=== PATIENT | female | born 1950 | race Caucasian/White ===

== ENCOUNTER 2020-04-16 14:02 | Outpatient (REF) | payer MEDICARE, SELFPAY ==
[2020-04-16 17:45] LABS: MANUAL DIFF FLAG NO
[2020-04-16 18:11] LABS: Basophils Absolute Auto 0.1 X10*3/uL (0.0-0.2); Basophils Percent Auto 1.4 % (0-2); Eosinophils Absolute Auto 0.3 X10*3/uL (0.0-0.4); Eosinophils Percent Auto 6.4 % (0-4); Hematocrit 40.9 % (37-47); Hemoglobin 13.4 g/dl (12.0-16.0); Imm Gran Abs Auto 0.03 X10*3/uL (0.00-0.03); Imm Gran Pct Auto 0.6 % (0.0-0.4); Lymphocytes Absolute Auto 1.3 X10*3/uL (1.2-4.9); Lymphocytes Percent Auto 24.6 % (20-40); Mean Corpuscular HGB Conc 32.8 g/dl (31.0-35.0); Mean Corpuscular Hemoglobin 30.2 pg (27.0-33.0); Mean Corpuscular Volume 92.3 fL (80-98); Mean Platelet Volume 9.6 fL (9.4-12.3); Monocytes Absolute Auto 0.4 X10*3/uL (0.1-1.2); Monocytes Percent Auto 8.4 % (2-11); Neutrophils Percent Auto 58.6 % (45-73); Platelet Count 252 X10*3/uL (160-400); Red Blood Count 4.43 X10*6/uL (4.20-5.50); Red Cell Distribution Width 14.8 % (11.0-16.0); White Blood Count 5.1 X10*3/uL (4.8-10.8)
[2020-04-16 18:24] LABS: Alanine Aminotransferase 7 U/L (0-31); Albumin Level 3.9 g/dL (3.5-5.0); Alkaline Phosphatase 73 U/L (39-117); Anion Gap 10 (12-20); Aspartate Amino Transferase 13 U/L (5-31); Bilirubin Total 0.3 mg/dL (0.0-1.0); Blood Urea Nitrogen 17 mg/dL (9-16); Calcium 8.6 mg/dL (8.4-10.2); Carbon Dioxide 30 mmol/L (22-29); Chloride 103 mmol/L (96-108); Cholesterol 167 mg/dL; Estimated Glomerular Filt Rate 58; Glucose Fasting 79 mg/dL (60-99); HDL Cholesterol 46 mg/dL; LDL Cholesterol Calculated 106 mg/dl; Sodium 139 mmol/L (135-145); Total Protein 6.9 g/dL (6.5-8.0); Triglycerides 75 mg/dL
== END 2020-04-16 14:03 | disposition home or self-care (01) ==
LOC: HO.MANLDS 14:02
PROVIDERS: PCP Physician Assistant; Visit Provider Physician Assistant
DX: Z00.00 Encounter for general adult medical examination without abnormal findings (principal); Z13.6 Encounter for screening for cardiovascular disorders
CPT/HCPCS: 36415; 80053; 80061; 85025

== ENCOUNTER → 2020-05-05 13:31 | Outpatient (BNVA) | payer MEDICARE, SELFPAY | PROVIDERS: PCP Internal Medicine; Referring Provider Physician Assistant; Visit Provider Internal Medicine Gastroenterology | DX: K58.0 Irritable bowel syndrome with diarrhea (principal); Z86.010 Personal history of colon polyps | CPT/HCPCS: 99212 ==

== ENCOUNTER 2020-07-10 12:00 | Day surgery (SDC) | payer MEDICARE, SELFPAY ==
[2020-07-03 10:55] VITALS: BMI 25.7
--- NOTE | 2020-07-08 14:20 | HO.ANESPROP2 ---
Documented by User: Tanja Lora 07/08/20 14:21 HPI - Anesthesia Eval Consult details Narrative: 70yo F for Colonoscopy [facility] Past Medical History Medical History Cancer of vulva IBS (irritable colon syndrome) Psoriasis Tubular adenoma of colon Family History Family History Mother Bladder cancer Heart disease Sister Breast cancer Hypothyroidism Father COPD (chronic obstructive pulmonary disease) HTN (hypertension) Paternal Grandfather Cancer Maternal Grandmother Diabetes mellitus Maternal Grandfather Heart attack Surgical History Surgical History Hx of colonoscopy Social History Social History Household Members: Spouse Are you a primary director critical care to a significant other at home: No Do you presently have visiting nurse or other home services: No Alcohol intake: current Alcohol intake frequency: does not drink Smoking Status: Current every day smoker Packs Per Day: 0.5 Cigarettes Per Day: 10.0 Years Smoked: 48 Smoked in Last 30 Days: Yes Patient Interested in Nicotine Replacement: No Patient Given Instructions on How to Stop Smoking: Yes Date Education Initiated: 07/03/20 Use of substances other than those prescribed or required for medical reasons: No Have you been hit, kicked, punched, or otherwise hurt by someone within the past year? If so, by whom?: No Advance Directives: No Advance Directives Information Provided: No Advance Directives on File: No Recently lost weight without trying: No Meds Allergies Allergy/AdvReac Type Severity Reaction Status Date / Time aspirin [Percodan] Allergy Unknown Headache Verified 07/10/20 12:24 oxycodone [Percodan] Allergy Unknown Headache Verified 05/05/20 13:32 Home Medications Medication Instructions Recorded Confirmed Type adalimumab 40 mg/0.4 mL 40 mg SUBCUT QWEEK ea 05/05/20 07/02/20 History subcutaneous syringe kit amlodipine 5 mg tablet 5 mg PO DAILY 05/05/20 07/02/20 History citalopram 20 mg tablet 20 mg PO DAILY 05/05/20 07/02/20 History ASA,buffd(mag,aluminum hydrox) ONCE 07/10/20 History Exam Exam Date and Time: July 08, 2020 1420 Height,Weight and Vital Signs: Height 5 ft 3 in Weight 65.771 kg Assessment and Plan Assessment Anesthesia Assessment: Chart Reviewed Documented by User: Racquel Guo 07/10/20 12:39 [facility] Past Medical History Medical History Cancer of vulva IBS (irritable colon syndrome) Psoriasis Tubular adenoma of colon Family History Family History Mother Bladder cancer Heart disease Sister Breast cancer Hypothyroidism Father COPD (chronic obstructive pulmonary disease) HTN (hypertension) Paternal Grandfather Cancer Maternal Grandmother Diabetes mellitus Maternal Grandfather Heart attack Surgical History Surgical History Hx of colonoscopy Social History Social History Household Members: Spouse Are you a primary director critical care to a significant other at home: No Do you presently have visiting nurse or other home services: No Alcohol intake: current Alcohol intake frequency: does not drink Smoking Status: Current every day smoker Packs Per Day: 0.5 Cigarettes Per Day: 10.0 Years Smoked: 48 Smoked in Last 30 Days: Yes Patient Interested in Nicotine Replacement: No Patient Given Instructions on How to Stop Smoking: Yes Date Education Initiated: 07/03/20 Use of substances other than those prescribed or required for medical reasons: No Have you been hit, kicked, punched, or otherwise hurt by someone within the past year? If so, by whom?: No Advance Directives: No Advance Directives Information Provided: No Advance Directives on File: No Recently lost weight without trying: No Meds Allergies Allergy/AdvReac Type Severity Reaction Status Date / Time aspirin [Percodan] Allergy Unknown Headache Verified 07/10/20 12:24 oxycodone [Percodan] Allergy Unknown Headache Verified 05/05/20 13:32 Home Medications Medication Instructions Recorded Confirmed Type adalimumab 40 mg/0.4 mL 40 mg SUBCUT QWEEK ea 05/05/20 07/02/20 History subcutaneous syringe kit amlodipine 5 mg tablet 5 mg PO DAILY 05/05/20 07/02/20 History citalopram 20 mg tablet 20 mg PO DAILY 05/05/20 07/02/20 History ASA,buffd(mag,aluminum hydrox) ONCE 07/10/20 History Exam Airway Mallampati Class: II TM Dist: >3cm Neck ROM: Full Assessment and Plan Assessment Anesthesia Assessment: Anesthesia Plan Discussed and Chart Reviewed Final Anesthetic Review NPO: Yes ASA Class: II Final Preanesthetic Review: No Changes in Pt Med Stat, Meds/Allgs Chart Reviewed, Consent Obtained/Reviewed and Anes Risks/Benef Reviewed Patient Risk: Low Procedure Risk: Low Assessment/Block/Sedation in SS: Assess/Block/Sedation-SS Anesthetic Plan Anesthetic Plan: MAC: Disposition: Standard PACU
[2020-07-10 12:29] VITALS: BP 161/71; PULSE 82; RESP 16; TEMP 35.7; O2SAT 98
--- NOTE | 2020-07-10 12:49 | MHC.SHP ---
Pre-Procedural Eval Section B Chief Complaint: Benign Neoplasm of Colon Details of Present Illness: COLON CANCER SCREENING; HX OF TUBULAR ADENOMAS nO CHANGES FROM pRE PROC VISIT Relevant Family History (Specify if Yes): No Relevant Social History: Tobacco Use (STILL A SMOKER) Present Medications: see Short Stay Collaborative assessment Medical History: Significant History History of Previous Operations: No relevant previous surgery (COLO-2015--NEG, PREVIOUS LARGE TA WITH HIGH GRADE DYSPLASIA.) Allergies: Allergies Allergy/AdvReac Type Severity Reaction Status Date / Time aspirin [Percodan] Allergy Unknown Headache Verified 07/10/20 12:24 oxycodone [Percodan] Allergy Unknown Headache Verified 05/05/20 13:32 Review of Systems Sugical H&P ROS: Negative: Constitution, Cardiovascular, Respiratory, Neurological, Psychiatric and Gastrointestinal Review of Systems Comment: hX OF COLO IN PAST WITH HIGH GRADE DYSPLASIA. Exam Surgical H&P Exam: Normal: HEENT, Normal: Heart, Normal: Lungs, Normal: Extremities and Normal: Abdomen Plan Diagnosis/Plan: Unchanged I have reviewed the history and physical and performed a pertinent physical examination on my patient. No changes have occurred unless specified.YES
[2020-07-10] MEDS: Lactated Ringers 1,000 ML 100 ML IVCONT (12:50)
[2020-07-10 13:34] VITALS: BP 87/48; PULSE 68; RESP 16; TEMP 36.1; O2SAT 97
--- NOTE | 2020-07-10 13:36 | PM.PROC ---
Brief Operative Note Date of procedure: 07/10/20 Pre-op diagnosis: HX OF TUBULAR ADENOMA Post-op diagnosis: other (COLON POLYPS, MELANOSIS COLI) Procedure: COLONOSCOPY EXCISIONAL POLYPECTOMY X2, CSP X1--RESOLUTION CLIPPING X1 Anesthesia: MAC (TRENA SOLANO) Surgeon: Fariba Ponce Estimated blood loss (mL): 10 Pathology: other (60 CM (2 POLYPS); RECTAL) Condition: stable Disposition: PACU
[2020-07-10 13:38] VITALS: BP 91/48; PULSE 60; RESP 16; O2SAT 97
[2020-07-10 13:44] VITALS: BP 90/43; PULSE 50; RESP 16; O2SAT 99
[2020-07-10 13:50] VITALS: BP 92/42; PULSE 53; RESP 16; TEMP 36.1; O2SAT 99
[2020-07-10 14:05] VITALS: BP 120/54; PULSE 57; RESP 16; TEMP 36.1; O2SAT 99
--- NOTE | 2020-07-10 14:46 | HO.POSTANES ---
Post Anesthesia Evaluation Post Anesthesia Evaluation Vital Signs: Vital Signs Temp Pulse Resp BP Pulse Ox 07/10/20 14:05 97 F 57 16 120/54 L 99 07/10/20 13:50 97 F 53 16 92/42 L 99 07/10/20 13:44 50 16 90/43 L 99 07/10/20 13:38 60 16 91/48 L 97 07/10/20 13:34 97 F 68 16 87/48 L 97 07/10/20 12:29 96.2 F L 82 16 161/71 H 98 Anesthesia: General (tiva) Mental Status: Awake Pain Control: Satisfactory Nausea/Vomiting: None Hydration: Adequate Anesthesia-Related Issues: No Anes. Related Issues
--- NOTE | 2020-07-12 12:06 | OP_ITS ---
SURGEON: Fariba Ponce MD INDICATIONS: The patient has history of tubular adenoma. PREOPERATIVE DIAGNOSIS: Colon cancer screening, Hx Tubular adenoma with high grade dysplasia ESTIMATED BLOOD LOSS: Less than 10 mL. COMPLICATIONS: No complications. ANESTHESIA: Monitored. ANESTHESIOLOGIST: Darío Martino CRNA. ASSISTANTS: No business banking sales assistant. SPECIMENS: Removed, 60 cm 2 polyps, 1 larger than the other. Rectal polyp. POSTOPERATIVE DIAGNOSES: Colonic polyps, melanosis coli. CAFETERIA OR LUNCHROOM CHECKER: Dr. Ponce. PROCEDURES PERFORMED: Colonoscopy with excisional polypectomy x2, cold snare polypectomy x1, resolution clipping x1. CONDITION: Postprocedure, stable. FINDINGS: Digital rectal exam revealed no specific findings. Video colonoscope was introduced without difficulty. It was navigated into the rectosigmoid sigmoid and up through descending, transverse, ascending colon down into the cecum. Appendiceal orifice was seen. Ileocecal valve was well seen. No mucosal lesions were seen in this area. Prep was good to excellent. Slow rotational views on withdrawing the scope at 60 cm, a 2-3 mm polyp was identified and removed with the use of 2-3 mm polyp was identified, removed with cold snare polypectomy technique. Excisional polypectomy was used and a diminutive polyp on the fold within the same 5 cm range. There was mild oozing from the larger polyp area, this was controlled with resolution clip placement. On withdrawing, no additional findings were noted until the rectum and then there was a somewhat sessile polyp that had varying cryptic pattern that was within 6 cm and anorectal verge was removed excisionally with the cold biopsy forceps. PLAN: This patient should remain in 5-year followup screening. She tolerated the procedure well. GRAFT OR IMPLANTS: No grafts or implants. Resolution clip was placed at base of polyp at 60 cm. Fariba Ponce MD [facility] / [id number] [facility]
== END 2020-07-10 14:58 | disposition home or self-care (01) ==
PROVIDERS: PCP Internal Medicine; Visit Provider Internal Medicine Gastroenterology
PROC: 0DJD8ZZ Inspection of Lower Intestinal Tract, Via Natural or Artificial Opening Endoscopic (ICD-10-PCS; CPT 45378; principal; 2020-07-10 13:10)
DX: Z12.11 Encounter for screening for malignant neoplasm of colon (principal); Z86.010 Personal history of colon polyps; D12.6 Benign neoplasm of colon, unspecified; K62.1 Rectal polyp; K63.89 Other specified diseases of intestine; K58.0 Irritable bowel syndrome with diarrhea; Z85.44 Personal history of malignant neoplasm of other female genital organs; Z79.899 Other long term (current) drug therapy; Z88.8 Allergy status to other drugs, medicaments and biological substances; F17.210 Nicotine dependence, cigarettes, uncomplicated
CPT/HCPCS: 45385; 45380; 88305

== ENCOUNTER → 2020-07-23 11:31 | Outpatient (BNVA) | payer MEDICARE, SELFPAY | PROVIDERS: PCP Internal Medicine; Visit Provider Internal Medicine Gastroenterology | DX: Z13.89 Encounter for screening for other disorder (principal) | CPT/HCPCS: Q3014 ==

== ENCOUNTER 2020-08-26 14:40 | Outpatient (REF) | payer MEDICARE, SELFPAY ==
[2020-08-26 15:08] LABS: MANUAL DIFF FLAG NO
[2020-08-26 15:12] LABS: Basophils Absolute Auto 0.1 X10*3/uL (0.0-0.2); Basophils Percent Auto 1.2 % (0-2); Eosinophils Absolute Auto 0.3 X10*3/uL (0.0-0.4); Eosinophils Percent Auto 5.1 % (0-4); Hematocrit 41.9 % (37-47); Hemoglobin 13.8 g/dl (12.0-16.0); Imm Gran Abs Auto 0.05 X10*3/uL (0.00-0.03); Imm Gran Pct Auto 0.9 % (0.0-0.4); Lymphocytes Absolute Auto 1.3 X10*3/uL (1.2-4.9); Lymphocytes Percent Auto 22.3 % (20-40); Mean Corpuscular HGB Conc 32.9 g/dl (31.0-35.0); Mean Corpuscular Hemoglobin 29.7 pg (27.0-33.0); Mean Corpuscular Volume 90.3 fL (80-98); Mean Platelet Volume 8.5 fL (9.4-12.3); Monocytes Absolute Auto 0.5 X10*3/uL (0.1-1.2); Monocytes Percent Auto 7.9 % (2-11); Neutrophils Absolute Auto 3.6 X10*3/uL (2.0-8.3); Neutrophils Percent Auto 62.6 % (45-73); Platelet Count 302 X10*3/uL (160-400); Red Blood Count 4.64 X10*6/uL (4.20-5.50); Red Cell Distribution Width 13.9 % (11.0-16.0); White Blood Count 5.7 X10*3/uL (4.8-10.8)
[2020-08-26 15:45] LABS: Alanine Aminotransferase 8 U/L (0-31); Alkaline Phosphatase 84 U/L (39-117); Anion Gap 12 (12-20); Aspartate Amino Transferase 14 U/L (5-31); Bilirubin Total 0.4 mg/dL (0.0-1.0); Blood Urea Nitrogen 18 mg/dL (9-16); Carbon Dioxide 30 mmol/L (22-29); Chloride 101 mmol/L (96-108); Estimated Glomerular Filt Rate 56; Glucose Random 72 mg/dL (60-115); Potassium 4.5 mmol/L (3.3-5.1); Sodium 138 mmol/L (135-145)
[2020-08-28 23:46] LABS: TS Negative Control Passed; TS Panel A 0; TS Panel B 0; TS Positive Control Passed; TSpotTB Negative (SeeBelow)
== END 2020-08-26 14:41 | disposition home or self-care (01) ==
LOC: HO.LAB 14:40
PROVIDERS: PCP Internal Medicine; Visit Provider Dermatology
DX: L40.0 Psoriasis vulgaris (principal); Z79.899 Other long term (current) drug therapy
CPT/HCPCS: 36415; 80053; 85025; 86481

== ENCOUNTER → 2021-02-13 15:03 | Outpatient (BNVA) | payer MEDICARE, SELFPAY | PROVIDERS: PCP Internal Medicine; Visit Provider Nurse Practitioner | DX: K58.9 Irritable bowel syndrome, unspecified (principal); D12.6 Benign neoplasm of colon, unspecified; F17.210 Nicotine dependence, cigarettes, uncomplicated | CPT/HCPCS: Q3014 ==

== ENCOUNTER → 2021-05-18 16:23 | Outpatient (BNVA) | payer MEDICARE, SELFPAY | PROVIDERS: Visit Provider Nurse Practitioner | DX: Z13.89 Encounter for screening for other disorder (principal) | CPT/HCPCS: Q3014 ==

== ENCOUNTER 2021-09-04 12:40 | Outpatient (REF) | payer MEDICARE, SELFPAY ==
[2021-09-04 14:12] LABS: MANUAL DIFF FLAG NO
[2021-09-04 14:28] LABS: Basophils Absolute Auto 0.1 X10*3/uL (0.0-0.2); Basophils Percent Auto 0.9 % (0-2); Eosinophils Absolute Auto 0.1 X10*3/uL (0.0-0.4); Eosinophils Percent Auto 2.5 % (0-4); Hematocrit 43.9 % (37.0-47.0); Hemoglobin 14.3 g/dl (12.0-16.0); Imm Gran Abs Auto 0.02 X10*3/uL (0.00-0.03); Imm Gran Pct Auto 0.4 % (0.0-0.4); Lymphocytes Absolute Auto 1.4 X10*3/uL (1.2-4.9); Lymphocytes Percent Auto 24.7 % (20-40); Mean Corpuscular HGB Conc 32.6 g/dl (31.0-35.0); Mean Corpuscular Hemoglobin 29.4 pg (27.0-33.0); Mean Corpuscular Volume 90.3 fL (80.0-98.0); Mean Platelet Volume 9.1 fL (9.4-12.3); Monocytes Absolute Auto 0.4 X10*3/uL (0.1-1.2); Monocytes Percent Auto 7.9 % (2-11); Neutrophils Absolute Auto 3.6 x10*3/uL (2.0-8.3); Neutrophils Percent Auto 63.6 % (45-73); Platelet Count 254 X10*3/uL (160-400); Red Blood Count 4.86 X10*6/uL (4.20-5.50); Red Cell Distribution Width 14.8 % (11.0-16.0); White Blood Count 5.6 X10*3/uL (4.8-10.8)
[2021-09-04 14:53] LABS: Alanine Aminotransferase < 6 U/L (0-31); Alkaline Phosphatase 77 U/L (39-117); Anion Gap 11 (12-20); Aspartate Amino Transferase 14 U/L (5-31); Bilirubin Total 0.4 mg/dL (0.0-1.0); Blood Urea Nitrogen 12 mg/dL (9-16); Calcium 9.5 mg/dL (8.4-10.2); Carbon Dioxide 30 mmol/L (22-29); Chloride 101 mmol/L (96-108); Estimated Glomerular Filt Rate 57; Glucose Random 81 mg/dL (60-115); Potassium 4.1 mmol/L (3.3-5.1); Sodium 138 mmol/L (135-145); Total Protein 7.3 g/dL (6.5-8.0)
[2021-09-04 15:11] LABS: Vitamin D 25-OH Total 21.3 ng/mL (>30)
[2021-09-06 19:32] LABS: TS Negative Control Passed; TS Panel A 0; TS Panel B 0; TS Positive Control Passed; TSpotTB Negative (Negative)
== END 2021-09-04 12:41 | disposition home or self-care (01) ==
LOC: HO.LAB 12:40
PROVIDERS: Dermatology; PCP Internal Medicine; Visit Provider Nurse Practitioner
DX: Z11.1 Encounter for screening for respiratory tuberculosis (principal); L40.0 Psoriasis vulgaris; E55.9 Vitamin D deficiency, unspecified; K58.0 Irritable bowel syndrome with diarrhea; L40.51 Distal interphalangeal psoriatic arthropathy; Z79.899 Other long term (current) drug therapy
CPT/HCPCS: 36415; 80053; 82306; 85025; 86481; 99212

== ENCOUNTER → 2021-10-06 13:37 | Outpatient (BNVA) | payer MEDICARE, SELFPAY | PROVIDERS: PCP Internal Medicine; Visit Provider Nurse Practitioner | DX: K58.0 Irritable bowel syndrome with diarrhea (principal); D12.6 Benign neoplasm of colon, unspecified | CPT/HCPCS: 99212 ==

== ENCOUNTER → 2021-12-01 14:02 | Outpatient (BNVA) | payer MEDICARE, SELFPAY | PROVIDERS: PCP Internal Medicine; Visit Provider Nurse Practitioner | DX: K58.0 Irritable bowel syndrome with diarrhea (principal); D12.6 Benign neoplasm of colon, unspecified; Z98.890 Other specified postprocedural states | CPT/HCPCS: 99212 ==

== ENCOUNTER → 2022-01-19 15:27 | Outpatient (BNVA) | payer MEDICARE, SELFPAY | PROVIDERS: PCP Internal Medicine; Visit Provider Nurse Practitioner | DX: K58.0 Irritable bowel syndrome with diarrhea (principal); Z86.010 Personal history of colon polyps; Z79.899 Other long term (current) drug therapy | CPT/HCPCS: 99212 ==

== ENCOUNTER 2022-06-08 14:30 | Outpatient (REF) | payer MEDICARE, SELFPAY ==
[2022-06-08 17:58] LABS: MANUAL DIFF FLAG NO
[2022-06-08 18:32] LABS: Basophils Absolute Auto 0.1 X10*3/uL (0.0-0.2); Eosinophils Absolute Auto 0.7 X10*3/uL (0.0-0.4); Eosinophils Percent Auto 11.4 % (0-4); Hemoglobin 12.5 g/dl (12.0-16.0); Imm Gran Abs Auto 0.02 X10*3/uL (0.00-0.03); Imm Gran Pct Auto 0.3 % (0.0-0.4); Lymphocytes Absolute Auto 1.1 X10*3/uL (1.2-4.9); Lymphocytes Percent Auto 17.3 % (20-40); Mean Corpuscular HGB Conc 32.9 g/dl (31.0-35.0); Mean Corpuscular Hemoglobin 29.6 pg (27.0-33.0); Mean Corpuscular Volume 89.8 fL (80.0-98.0); Mean Platelet Volume 9.7 fL (9.4-12.3); Monocytes Absolute Auto 0.5 X10*3/uL (0.1-1.2); Monocytes Percent Auto 8.4 % (2-11); Neutrophils Absolute Auto 3.9 x10*3/uL (2.0-8.3); Neutrophils Percent Auto 61.6 % (45-73); Platelet Count 309 X10*3/uL (160-400); Red Blood Count 4.23 X10*6/uL (4.20-5.50); Red Cell Distribution Width 14.8 % (11.0-16.0); White Blood Count 6.3 X10*3/uL (4.8-10.8)
[2022-06-08 18:45] LABS: Alanine Aminotransferase 15 U/L (0-31); Albumin Level 3.8 g/dL (3.5-5.0); Alkaline Phosphatase 104 U/L (39-117); Anion Gap 12 (12-20); Aspartate Amino Transferase 18 U/L (5-31); Bilirubin Total 0.6 mg/dL (0.0-1.0); Blood Urea Nitrogen 11 mg/dL (9-16); Calcium 8.9 mg/dL (8.4-10.2); Carbon Dioxide 27 mmol/L (22-29); Chloride 104 mmol/L (96-108); Estimated Glomerular Filt Rate > 60; Ferritin 63 ng/mL (10-250); Free T4 (Free Thyroxine) 1.04 ng/dL (0.71-1.85); Glucose Random 70 mg/dL (60-115); Iron 50 mcg/dL (30-160); Percent Iron Saturation 20 % (15-50); Potassium 3.9 mmol/L (3.3-5.1); Sodium 139 mmol/L (135-145); Thyroid Stimulating Hormone 2.13 uIU/mL (0.32-4.0); Total Iron Binding Capacity 255 mcg/dL (228-428); Unsaturated Iron Binding 205 ug/dL
[2022-06-08 19:04] LABS: Erythrocyte Sedimentation Rate 28 MM/HR (0-20)
== END 2022-06-08 14:31 | disposition home or self-care (01) ==
LOC: HO.MANLDS 14:30
PROVIDERS: Visit Provider Physician Assistant
DX: Z00.00 Encounter for general adult medical examination without abnormal findings (principal); R63.4 Abnormal weight loss; R00.2 Palpitations
CPT/HCPCS: 36415; 80053; 82728; 83540; 83735; 84439; 84443; 85025; 85652

== ENCOUNTER 2022-10-01 13:17 | Outpatient (REF) | payer MEDICARE, SELFPAY ==
[2022-10-01 14:22] LABS: MANUAL DIFF FLAG NO
[2022-10-01 14:29] LABS: Basophils Absolute Auto 0.1 X10*3/uL (0.0-0.2); Basophils Percent Auto 0.8 % (0-2); Eosinophils Absolute Auto 0.8 X10*3/uL (0.0-0.4); Eosinophils Percent Auto 11.1 % (0-4); Hematocrit 37.7 % (37.0-47.0); Hemoglobin 12.4 g/dl (12.0-16.0); Imm Gran Abs Auto 0.02 X10*3/uL (0.00-0.03); Imm Gran Pct Auto 0.3 % (0.0-0.4); Lymphocytes Absolute Auto 1.1 X10*3/uL (1.2-4.9); Lymphocytes Percent Auto 15.3 % (20-40); Mean Corpuscular HGB Conc 32.9 g/dl (31.0-35.0); Mean Corpuscular Volume 88.1 fL (80.0-98.0); Mean Platelet Volume 9.4 fL (9.4-12.3); Monocytes Absolute Auto 0.6 X10*3/uL (0.1-1.2); Monocytes Percent Auto 7.9 % (2-11); Neutrophils Absolute Auto 4.6 x10*3/uL (2.0-8.3); Neutrophils Percent Auto 64.6 % (45-73); Platelet Count 246 X10*3/uL (160-400); Red Blood Count 4.28 X10*6/uL (4.20-5.50); Red Cell Distribution Width 15.5 % (11.0-16.0); White Blood Count 7.1 X10*3/uL (4.8-10.8)
[2022-10-01 14:58] LABS: Alanine Aminotransferase 14 U/L (0-31); Albumin Level 3.7 g/dL (3.5-5.0); Alkaline Phosphatase 94 U/L (39-117); Anion Gap 11 (12-20); Aspartate Amino Transferase 17 U/L (5-31); Bilirubin Total 0.7 mg/dL (0.0-1.0); Blood Urea Nitrogen 14 mg/dL (9-16); Calcium 8.8 mg/dL (8.4-10.2); Carbon Dioxide 26 mmol/L (22-29); Chloride 106 mmol/L (96-108); Cholesterol 96 mg/dL; Estimated Glomerular Filt Rate 55; Glucose Fasting 83 mg/dL (60-99); HDL Cholesterol 42 mg/dL; LDL Cholesterol Calculated 43 mg/dl; Potassium 4.3 mmol/L (3.3-5.1); Sodium 139 mmol/L (135-145); Total Protein 6.6 g/dL (6.5-8.0); Triglycerides 59 mg/dL
[2022-10-03 23:29] LABS: TS Negative Control Passed; TS Panel A 0; TS Panel B 0; TS Positive Control Passed; TSpotTB Negative (Negative)
== END 2022-10-01 13:18 | disposition home or self-care (01) ==
LOC: HO.LAB 13:17
PROVIDERS: Absent Provider Dermatology; PCP Internal Medicine; Referring Provider Internal Medicine Interventional Cardiology; Visit Provider Nurse Practitioner
DX: L40.0 Psoriasis vulgaris (principal); L40.51 Distal interphalangeal psoriatic arthropathy; K58.0 Irritable bowel syndrome with diarrhea; Z79.899 Other long term (current) drug therapy
CPT/HCPCS: 36415; 80053; 80061; 85025; 86481; 99212

== ENCOUNTER 2023-04-01 13:01 | Outpatient (AMB) | payer MEDICARE, SELFPAY ==
[2023-04-01 13:02] VITALS: BP 173/77; PULSE 57; BMI 21.8
--- NOTE | 2023-04-01 13:02 | A.OFFVIS_ITS ---
Intake Vital Signs 04/01/23 13:02 Height 5 ft 3 in Weight 123 lb 0.287 oz BMI 21.8 BP 173/77 H Blood Pressure Location Rt brachial Position Sitting Pulse 57 Intake Visit Reasons: 6 month fu Intake Note: Cydney Isaacs presents in the office as a 6 months follow up for IBD-S and bloating. CC: She states she has occasional abdominal bloating and diarrhea. Denies any new GI symptoms or concerns. Fire Investigation Manager Required: No Accompanied by: Self / Same As Patient Allergies oxycodone [Percodan] Allergy (Unknown, Verified 04/01/23 13:04) Headache acetaminophen [From Percocet] Adverse Reaction (Mild, Verified 04/01/23 13:04) unknown HPI 6 month fu HPI Details Assessment & Plan (1) Irritable bowel syndrome with diarrh ea: Code(s): K58.0 - Irritable bowel syndrome with diarrhea Plan: Her diarrhea is well controlled on her carafate, she goes back and for the between 2-3 tablets. She is also taking Lotronex 1mg bid and her diarrhea is about, 80% better and no more accidents! She is losing weight AND she does not know why, a lot was after her PR - about 25 lbs!. She thinks it is r/t the medications she was on after this. She is work ing with her PCP on this. She has had lab work and CXR that are negative. She is up-to-date on her colonoscopy and her appetite is generally good except for occasional waves of nausea. ROV 6 mos. TODAY'S VISIT She found that the Billenta caused her significant wt loss. She is now up 8 lbs. she continues to do well, not perfect, but greatly improved overall. She continues on the Lotronex and the Carafate as needed and she remains satisfied with her GI regimen. ROV 6 mos. [facility] Medical History Cancer of vulva IBS (irritable colon syndrome) Psoriasis Tubular adenoma of colon Surgical History Hx of colonoscopy Family History Mother Bladder cancer Heart disease Sister Breast cancer Hypothyroidism Father COPD (chronic obstructive pulmonary disease) HTN (hypertension) Paternal Grandfather Cancer Maternal Grandmother Diabetes mellitus Maternal Grandfather Heart attack Social History Household Members: Spouse Are you a primary physician primary care sports medicine to a significant other at home: No Do you presently have visiting nurse or other home services: No Alcohol intake: current Alcohol intake frequency: does not drink Cigarette Packs Per Day: 0.5 Cigarettes Per Day: 10.0 Years Smoked: 48 Review of Systems Const Denies fatigue, Denies fever(s), Denies night sweats, Denies poor appetite, Reports weight gain and Denies weight loss Eyes Details: Glasses Reports requires corrective lenses ENT Reports Normal hearing present, Denies dental pain, Denies dysphagia, Denies hearing loss, Denies mouth pain, Denies odynophagia, Denies throat swelling, Denies tongue swelling and Reports other (Dentition adequate) Card Reports no additional complaints Resp Reports no additional complaints GI Denies abdominal pain, Denies melena, Denies bloating, Denies hematochezia, Denies constipation, Denies GI cramping, Denies dysphagia, Denies excessive flatus, Denies early satiety, Denies heartburn, Reports diarrhea, Denies nausea, Denies odynophagia, Denies vomiting and Denies hematemesis Skin/Breast Denies pruritus, Denies lesions, Denies rash and Denies jaundice Neuro Reports Normal hearing present and Denies Abnormal speech present Endo Denies fatigue Aller/Immun Denies throat swelling and Denies tongue swelling Physical Exam Vital Signs: Last Vital Signs Pulse 57 04/01/23 13:02 BP 173/77 H 04/01/23 13:02 BMI result Body Mass Index 21.8 Const General: cooperative, no acute distress, well developed and well groomed Nutritional Appearance: average body habitus and well nourished Orientation/consciousness: oriented to person, oriented to place and oriented to time Limitations: No language barrier HEENT Head: Yes normocephalic and Yes atraumatic Eyes General: appearance normal, both eyes and all related structures Pupils: Equal, round and reactive pupils present Neck Neck: Yes normal visual inspection and Yes no lymphadenopathy Thyroid: Thyroid normal Resp Effort & Inspection: normal respiratory effort and able to speak in complete sentences Auscultation: clear to auscultation bilaterally Cardio Rate: regular rate Rhythm: regular rhythm Heart sounds: Normal, physiologic split S2 sound present Peripheral pulses: radial pulses present and posterior tibial pulses present GI Inspection: No distended and No Abdominal panniculus present Palpation (GI): Soft to palpation, nontender, no guarding, not rigid and No hepatosplenomegaly present Percussion: Yes normal to percussion Auscultation: normal bowel sounds Rectal Exam - Female: deferred Skin General skin exam: no rashes or lesions noted, turgor normal, skin not dry, no jaundice, No spider nevi and no striae Rashes: no rashes Nails: normal Neuro General: oriented to person, oriented to place and oriented to time Cranial nerves: Yes Equal, round and reactive pupils present and Yes Normal hearing present Speech: No Abnormal speech present Extrem General: Yes normal to inspection, No clubbing, No cyanosis and No edema Psych Appearance: grossly normal and well kempt Mental Status: mental status grossly normal Speech and movement: Normal speech and movement present Affect: normal affect Attitude: cooperative Thought process: Normal thought process present and not confabulating Thought content: Normal thought content present Insight: Good insight present (Psych) Judgement: Good judgement present (Psych) Assessment & Plan Assessment & Plan (1) Irritable bowel syndrome with diarrhea: Code(s): K58.0 - Irritable bowel syndrome with diarrhea Plan: She found that the Billenta caused her significant wt loss. She is now up 8 lbs. she continues to do well, not perfect, but greatly improved overall. She continues on the Lotronex and the Carafate as needed and she remains satisfied with her GI regimen. ROV 6 mos. Medications: Refilled sucralfate 3 grams (3 x 1 gram) PO DAILY 270 tabs 1RF K58.0 - Irritable bowel syndrome with diarrhea alosetron 1 mg PO BID 60 tabs 6RF K58.0 - Irritable bowel syndrome with diarrhea Coding Level of Care Code Est Pt Level 3 (41135) Diagnoses Irritable bowel syndrome with diarrhea K58.0
== END 2023-04-01 13:20 | disposition home or self-care (01) ==
PROVIDERS: PCP Internal Medicine; Visit Provider Nurse Practitioner
DX: K58.0 Irritable bowel syndrome with diarrhea (principal)
CPT/HCPCS: 99213

== ENCOUNTER → 2023-04-01 13:01 | Outpatient (BNVA) | payer MEDICARE, SELFPAY | PROVIDERS: PCP Internal Medicine; Visit Provider Nurse Practitioner | DX: K58.0 Irritable bowel syndrome with diarrhea (principal) | CPT/HCPCS: 99212 ==

== ENCOUNTER 2023-09-30 13:08 | Outpatient (AMB) | payer MEDICARE, SELFPAY ==
--- NOTE | 2023-09-30 13:12 | A.OFFVIS_ITS ---
Intake Vital Signs 09/30/23 13:52 Height 5 ft 3 in Weight 131 lb BMI 23.2 BP 167/74 H Blood Pressure Location Lt brachial Position Sitting Pulse 62 Intake Visit Reasons: 6 month follow up Intake Note: Patient returns in 6 months follow up of IBS. CC: No concerns today patient reports doing well. Tourist Guide Required: No Allergies oxycodone [Percodan] Allergy (Unknown, Verified 09/30/23 13:57) Headache acetaminophen [From Percocet] Adverse Reaction (Mild, Verified 09/30/23 13:57) unknown HPI 6 month follow up HPI Details Assessment & Plan (1) Irritable bowel syndrome with diarrh ea: Code(s): K58.0 - Irritable bowel syndrome with diarrhea Plan: She found that the Billenta caused her significant wt loss. She is now up 8 lbs. she continues to do well, not perfect, but greatly improved overall. She continues on the Lotronex and the Carafate as needed and she remains satisfied with her GI regimen. ROV 6 mos. Medications: Refilled sucralfate 3 grams (3 x 1 gra m) PO DAILY 270 ta bs 1RF K58.0 - Irritable bowel syndrome wit h diarrhea alosetron 1 mg PO BID 60 ta bs 6RF K58.0 - Irritable bowel syndrome wit h diarrhea TODAY'S VISIT She continues to do very well and her diarrhea is controlled on her sucralfate 3 g daily and her Lotronex 1 mg tablet twice a day. She remains satisfied with her GI regimen. Return office visit in 6 months. [facility] Medical History Cancer of vulva Psoriasis Tubular adenoma of colon IBS (irritable colon syndrome) Surgical History Hx of colonoscopy Family History Mother Bladder cancer Heart disease Sister Breast cancer Hypothyroidism Father COPD (chronic obstructive pulmonary disease) HTN (hypertension) Paternal Grandfather Cancer Maternal Grandmother Diabetes mellitus Maternal Grandfather Heart attack Social History Household Members: Spouse Are you a primary career services officer to a significant other at home: No Do you presently have visiting nurse or other home services: No Alcohol intake: current Alcohol intake frequency: does not drink Cigarette Packs Per Day: 0.5 Cigarettes Per Day: 10.0 Years Smoked: 48 Review of Systems Const Denies fatigue, Denies fever(s), Denies night sweats, Denies poor appetite and Denies weight loss Eyes Details: Glasses Reports requires corrective lenses ENT Reports Normal hearing present, Denies dental pain, Denies dysphagia, Denies hearing loss, Denies mouth pain, Denies odynophagia, Denies throat swelling, Denies tongue swelling and Reports other (Dentition adequate) Card Reports no additional complaints Resp Reports no additional complaints GI Details: Denies abdominal pain, Denies melena, Denies bloating, Denies hematochezia, Denies constipation, Denies GI cramping, Denies dysphagia, Denies excessive flatus, Denies early satiety, Denies heartburn, Reports diarrhea, Denies nausea, Denies odynophagia, Denies vomiting and Denies hematemesis Skin/Breast Denies pruritus, Denies lesions, Denies rash and Denies jaundice Neuro Reports Normal hearing present and Denies Abnormal speech present Endo Denies fatigue Aller/Immun Denies throat swelling and Denies tongue swelling Physical Exam Vital Signs: Last Vital Signs Pulse 62 09/30/23 13:52 BP 167/74 H 09/30/23 13:52 BMI result Body Mass Index 23.2 Const General: cooperative, no acute distress, well developed and well groomed Nutritional Appearance: average body habitus and well nourished Orientation/consciousness: oriented to person, oriented to place and oriented to time Limitations: No language barrier HEENT Head: Yes normocephalic and Yes atraumatic Eyes General: appearance normal, both eyes and all related structures Pupils: Equal, round and reactive pupils present Neck Neck: Yes normal visual inspection and Yes no lymphadenopathy Thyroid: Thyroid normal Resp Effort & Inspection: normal respiratory effort and able to speak in complete sentences Auscultation: clear to auscultation bilaterally Cardio Rate: regular rate Rhythm: regular rhythm Heart sounds: Normal, physiologic split S2 sound present Peripheral pulses: radial pulses present and posterior tibial pulses present GI Inspection: No distended and No Abdominal panniculus present Palpation (GI): Soft to palpation, nontender, no guarding, not rigid and No hepatosplenomegaly present Percussion: Yes normal to percussion Auscultation: normal bowel sounds Rectal Exam - Female: deferred Skin General skin exam: no rashes or lesions noted, turgor normal, skin not dry, no jaundice, No spider nevi and no striae Rashes: no rashes Nails: normal Neuro General: oriented to person, oriented to place and oriented to time Cranial nerves: Yes Equal, round and reactive pupils present and Yes Normal hearing present Speech: No Abnormal speech present Extrem General: Yes normal to inspection, No clubbing, No cyanosis and No edema Psych Appearance: grossly normal and well kempt Mental Status: mental status grossly normal Speech and movement: Normal speech and movement present Affect: normal affect Attitude: cooperative Thought process: Normal thought process present and not confabulating Thought content: Normal thought content present Insight: Good insight present (Psych) Judgement: Good judgement present (Psych) Assessment & Plan Assessment & Plan (1) Irritable bowel syndrome with diarrhea: Code(s): K58.0 - Irritable bowel syndrome with diarrhea Plan She continues to do very well and her diarrhea is controlled on her sucralfate 3 g daily and her Lotronex 1 mg tablet twice a day. She remains satisfied with her GI regimen. Return office visit in 6 months. Medications: Refilled alosetron 1 mg PO BID 60 tabs 6RF K58.0 - Irritable bowel syndrome with diarrhea sucralfate 3 grams (3 x 1 gram) PO DAILY 270 tabs 1RF K58.0 - Irritable bowel syndrome with diarrhea Coding Level of Care Code Est Pt Level 3 (83661) Diagnoses Irritable bowel syndrome with diarrhea K58.0
[2023-09-30 13:52] VITALS: BP 167/74; PULSE 62; BMI 23.2
== END 2023-09-30 14:03 | disposition home or self-care (01) ==
PROVIDERS: PCP Internal Medicine; Visit Provider Nurse Practitioner
DX: K58.0 Irritable bowel syndrome with diarrhea (principal)
CPT/HCPCS: 99213

== ENCOUNTER 2023-09-30 13:08 | Outpatient (REF) | payer MEDICARE, SELFPAY ==
[2023-10-02 22:09] LABS: TS Negative Control Passed; TS Panel A 0; TS Panel B 0; TS Positive Control Passed; TSpotTB Negative (Negative)
== END 2023-09-30 13:09 | disposition home or self-care (01) ==
LOC: HO.LAB 13:08
PROVIDERS: Dermatology; PCP Internal Medicine; Visit Provider Nurse Practitioner
DX: L40.0 Psoriasis vulgaris (principal); K58.0 Irritable bowel syndrome with diarrhea; Z79.899 Other long term (current) drug therapy
CPT/HCPCS: 36415; 86481; 99212

== ENCOUNTER 2024-03-30 14:49 | Outpatient (AMB) | payer MEDICARE, SELFPAY ==
--- NOTE | 2024-03-30 14:51 | A.OFFVIS_ITS ---
Vital Signs 03/30/24 15:03 Height 5 ft 3 in Weight 141 lb 1.533 oz BMI 25.0 BP 173/88 H Blood Pressure Location Rt brachial Position Sitting Pulse 64 Intake Visit Reasons: 6 month follow up Intake Note: Patient in office today in 6 months follow up of IBS. CC: Patient reports a few episodes of diarrhea but she attributes it to stress lately. She lost her last week. Denies having any other GI symptoms today. Human Resources Compensation Analyst Required: No Accompanied by: Self / Same As Patient Allergies oxycodone [Percodan] Allergy (Unknown, Verified 03/30/24 15:09) Headache acetaminophen [From Percocet] Adverse Reaction (Mild, Verified 03/30/24 15:09) unknown HPI HPI 6 month follow up: Details: Assessment & Plan (1) Irritable bowel syndrome with diarrhea: Code(s): K58.0 - Irritable bowel syndrome with diarrhea Plan She continues to do very well and her diarrhea is controlled on her sucralfate 3 g daily and her Lotronex 1 mg tablet twice a day. She remains satisfied with her GI regimen. Return office visit in 6 months. Medications: Refilled alosetron 1 mg PO BID 60 tabs 6RF K58.0 - Irritable bowel syndrome with diarrhea sucralfate 3 grams (3 x 1 gram) PO DAILY 270 tabs 1RF K58.0 - Irritable bowel syndrome with diarrhea TODAY'S VISIT Her just , he peacefully. It was lung cancer. SO this has upset her GI regimen somewhat, but she says she doing ok overall and she does not think she needs any therapy adjustments. She also ran out of her Lotronex and there was some delay as the pharmacy was out of the 1mg dose. She has tried to continue on her sucralfate but alone and has not been enough to control her symptoms. She feels that when she restarts her medication she will be fine and she will call me if she has not. ROV 6 mos. COUNT INCLUDES THE [facility] Medical History Cancer of vulva Psoriasis Tubular adenoma of colon IBS (irritable colon syndrome) Surgical History Hx of colonoscopy Family History Mother Bladder cancer Heart disease Sister Breast cancer Hypothyroidism Father COPD (chronic obstructive pulmonary disease) HTN (hypertension) Paternal Grandfather Cancer Maternal Grandmother Diabetes mellitus Maternal Grandfather Heart attack Social History Household Members: Spouse Are you a primary healthcare applications analyst to a significant other at home: No Do you presently have visiting nurse or other home services: No Alcohol intake: current Alcohol intake frequency: does not drink Cigarette Packs Per Day: 0.5 Cigarettes Per Day: 10.0 Years Smoked: 48 Review of Systems Const Denies fatigue, Denies fever(s), Denies night sweats, Denies poor appetite and Denies weight loss ENT Reports Normal hearing present, Denies dysphagia, Denies odynophagia, Denies throat swelling and Denies tongue swelling Card Reports no additional complaints Resp Reports no additional complaints GI Details: Denies abdominal pain, Denies melena, Denies bloating, Denies hematochezia, Denies constipation, Denies GI cramping, Denies dysphagia, Denies excessive flatus, Denies early satiety, Denies heartburn, Reports diarrhea, Denies nausea, Denies odynophagia, Denies vomiting and Denies hematemesis Skin/Breast Denies pruritus, Denies lesions, Denies rash and Denies jaundice Neuro Reports Normal hearing present and Denies Abnormal speech present Endo Denies fatigue Aller/Immun Denies throat swelling and Denies tongue swelling Physical Exam Vital Signs: Last Vital Signs Pulse 64 03/30/24 15:03 BP 173/88 H 03/30/24 15:03 BMI result Body Mass Index 25.0 Const General: cooperative, no acute distress, well developed and well groomed Nutritional Appearance: average body habitus and well nourished Orientation/consciousness: oriented to person, oriented to place and oriented to time Limitations: No language barrier HEENT Head: Yes normocephalic and Yes atraumatic Eyes General: appearance normal, both eyes and all related structures Pupils: Equal, round and reactive pupils present Neck Neck: Yes normal visual inspection and Yes no lymphadenopathy Thyroid: Thyroid normal Resp Effort & Inspection: normal respiratory effort and able to speak in complete sentences Auscultation: clear to auscultation bilaterally Cardio Rate: regular rate Rhythm: regular rhythm Heart sounds: Normal, physiologic split S2 sound present Peripheral pulses: radial pulses present and posterior tibial pulses present GI Inspection: No distended and No Abdominal panniculus present Palpation (GI): Soft to palpation, nontender, no guarding, not rigid and No hepatosplenomegaly present Percussion: Yes normal to percussion Auscultation: normal bowel sounds Rectal Exam - Female: deferred Skin General skin exam: no rashes or lesions noted, turgor normal, skin not dry, no jaundice, No spider nevi and no striae Rashes: no rashes Nails: normal Neuro General: oriented to person, oriented to place and oriented to time Cranial nerves: Yes Equal, round and reactive pupils present and Yes Normal hearing present Speech: No Abnormal speech present Extrem General: Yes normal to inspection, No clubbing, No cyanosis and No edema Psych Appearance: grossly normal and well kempt Mental Status: mental status grossly normal Speech and movement: Normal speech and movement present Affect: normal affect Attitude: cooperative Thought process: Normal thought process present and not confabulating Thought content: Normal thought content present Insight: Good insight present (Psych) Judgement: Good judgement present (Psych) Assessment & Plan Assessment & Plan (1) Irritable bowel syndrome with diarrhea: Code(s): K58.0 - Irritable bowel syndrome with diarrhea Category: Medical Plan Her just , he peacefully. It was lung cancer. SO this has upset her GI regimen somewhat, but she says she doing ok overall and she does not think she needs any therapy adjustments. She also ran out of her Lotronex and there was some delay as the pharmacy was out of the 1mg dose. She has tried to continue on her sucralfate but alone and has not been enough to control her symptoms. She feels that when she restarts her medication she will be fine and she will call me if she has not. ROV 6 mos. Medications: Changed From sucralfate 3 grams (3 x 1 gram) PO DAILY 270 tabs 1RF K58.0 - Irritable bowel syndrome with diarrhea To sucralfate 3 grams (3 x 1 gram) PO DAILY 270 tabs 1RF K58.0 - Irritable bowel syndrome with diarrhea Refilled alosetron 1 mg PO BID 60 tabs 6RF K58.0 - Irritable bowel syndrome with diarrhea Coding Level of Care Code Est Pt Level 3 (99990) Diagnoses Irritable bowel syndrome with diarrhea K58.0
[2024-03-30 15:03] VITALS: BP 173/88; PULSE 64; BMI 25.0
== END 2024-03-30 17:00 | disposition home or self-care (01) ==
PROVIDERS: PCP Internal Medicine; Visit Provider Nurse Practitioner
DX: K58.0 Irritable bowel syndrome with diarrhea (principal)
CPT/HCPCS: 99213

== ENCOUNTER → 2024-03-30 14:49 | Outpatient (BNVA) | payer MEDICARE, SELFPAY | PROVIDERS: PCP Internal Medicine; Visit Provider Nurse Practitioner | DX: K58.0 Irritable bowel syndrome with diarrhea (principal) | CPT/HCPCS: 99212 ==

== ENCOUNTER 2024-08-16 16:15 | Outpatient (REF) | payer MEDICARE, SELFPAY ==
--- NOTE | ~2024-08-16 | US_ITS ---
CLINICAL HISTORY: SWELLING MASS LUMP UNDER LEFT SIDE JAW US neck Comparison: None Findings: Corresponding to the patient's lump is a heterogeneous hypoechoic 3.1 x 2.5 x 1.6 cm mass with color Doppler signal within internal septated areas. Further evaluation with neck CT or MRI recommended if patient can safely receive intravenous contrast. Impression: 1. Nonspecific mass in the area of patient's lump. Clinically appropriate follow-up evaluation recommended. This document has been electronically signed by: Shlomo Taylor MD on 08/18/2024 08:55:02
--- OUTSIDE RECORDS SUMMARY | 2024-08-16 16:17 | XMS_ITS | Continuity of Care Document ---
Author Organization [facility] Address [address] [place] [address] [place] [address] Assessment No assessment recorded. Plan of Treatment Reminders Order Date Submit Date Provider Last Modified By Organization Details Last Modified Time Details Appointments ANNUAL EXAM 2024 01:30P JESE RODAS Not available Not available Not available Lab lipid panel, serum 2024 025 [facility], [address] [place] [address], [id number], 07/25/2024 15:21:59 CMP, serum or plasma 2024 025 [facility], [address] [place] [address], [id number], 07/25/2024 15:21:59 CBC w/ auto diff 2024 025 [facility], [address] [place] [address], [id number], 07/25/2024 15:21:59 hemoglobi n A1c, QN, blood 2024 025 [facility], [address] [place] [address], [id number], 07/25/2024 15:21:59 Referral None recorded. Procedures None recorded. Surgeries None recorded. Imaging US, neck, soft tissue 2024 025 [facility] Scheduling, [address] [place] [address], [id number], 07/27/2024 09:08:25 Medication Orders None recorded. Patient TargetsNo targets recorded. Patient InstructionsNo instructions recorded. Reason for Referral None Reported. Problems Name Problem SNOMED Code Status Onset Date Resolution Date Notes Provider Name and Address Organization Details Recorded Time Yari scott 72688829 Active 2017 Not Available [facility] 0 02:44:11 Psoriasi s 8092556 Active 2017 Not Available [facility] 0 02:44:11 Anxiety 51043053 Active 2017 Not Available [facility] 0 02:44:10 Microsco pic hematuri a 851336511 Active 2018 dr brady Not Available [facility] 0 02:44:11 Tobacco dependen ce syndrome 08274323 Active 2018 Not Available [facility] 0 02:44:11 Malignan t tumor of vulva 315420446 Active 2018 Not Available [facility] 0 02:44:11 Stented coronary artery 913975369 Active 2021 resolute sebastien zotarlium s-eluting stent JESE GRAVES [address] [place] [address], [phone], [facility] [place], [facility] 2 14:02:52 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 754560233 Active 2021 JESE GRAVES [address] [place] [address], [phone], [facility] [place] 2 14:05:16 Hyperlip idemia 79728272 Active 2021 JESE GRAVES [address] [place] [address], [phone], [facility] [place] 2 15:36:17 Abnormal weight loss 727382147 Active 2021 JESE GRAVES [address] [place], [address], [facility] [place] 2 13:58:53 Palpitat ions 85075461 Active 2021 JESE GRAVES [address] [place] [address], [phone], [facility] [place] 2 13:59:29 Contact dermatit is 88222996 Active 2023 JESE GRAVES [address] [place] [address], [phone], [facility] [place] 4 13:55:13 Allergic reaction to drug 172743450 Active 2023 JESE GRAVES [address] [place] [address], [phone], [facility] [place] 4 13:55:23 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 JESE GRAVES [address] [place] [address], [phone], [facility] [place] 4 14:19:49 Myocardi al infarcti on 27443416 Active 2023 JESE GRAVES [address] [place] [address], [phone], [facility] [place] 4 14:28:25 Mass of neck 181711390 Active 2024 JESE GRAVES [address] [place] [address], [phone], [facility] [place] 5 15:11:04 Problem Notes None recorded. Procedures Surgical History Date Name Laterality Status Provider Name and Address Organization Details Recorded Time 03/06/20 15 colonoscopy completed October NICOLETTE Thayer [address] [place] [address], [phone], [facility] [place] 04/25/2019 13:59:26 04/03/20 13 colonoscopy completed Sarah NICOLETTE Thayer [address] [place] [address], [phone], [facility] [place] 04/23/2019 16:33:52 07/04/18 94 Vulvectomy simple complete completed Lucie Gardner NP, [address] [place], [place] [address], [place], [address], [facility] [place] 04/07/2018 13:40:20 Imaging Results None recorded. Procedure Notes None recorded. Medical Equipment None Reported. Allergies Allergen ID Allergen Name Allergen Category Reaction Reaction Severity Criticality Documentation Date Start Date Code Code System Note Provider Name and Address Organization Details Recorded Time 2376 Percodan medicatio n Not available Not available Not available 04/07/2018 41896 RxNorm Rina Guerrero margoth [facility] 8 08:21:41 7849 Vtama medicatio n rash severe high 09/02/20232023 23900 02 RxNorm Tosha Ovalles margoth [facility] 4 14:13:54 Medications Name Sig Start Date Stop Date Status Note LastModified by Organization Details LastModified Time amoxicillin 500 mg capsule TAKE 1 CAPSULE BY MOUTH THREE TIMES DAILY 05/25 completed Not Available Not Available Not Available atorvastati n 80 mg tablet TAKE 1 TABLET BY MOUTH EVERY DAY AT BEDTIME active Not Available Not Available No t Available prednisone 10 mg tablet 05/25 completed Not Available Not Available Not Available valacyclovi r 1 gram tablet 04/23 completed Not Available Not Available Not Available hydrocodone 5 mg-acetamin ophen 325 mg tablet TAKE 1 TABLET BY MOUTH EVERY 6 HOURS NEEDED FOR PAIN 07/25 completed Not Available Not Available Not Available sucralfate 1 gram tablet TAKE 3 TABLETS BY MOUTH DAILY active Not Available Not Available No t Available amlodipine 5 mg tablet TAKE 1 TABLET BY MOUTH EVERY DAY active Not Available Not Available No t Available triamcinolo ne acetonide 0.1 % topical cream APPLY TWO TO THREE TIMES PER WEEK TO FLARES NEEDED. DO NOT USE ON THE FACE active Not Available Not Available No t Available amoxicillin 500 mg tablet TAKE 1 TABLET BY MOUTH THREE TIMES DAILY 05/10 completed Not Available Not Available Not Available citalopram 20 mg tablet TAKE 1 AND 1/2 TABLETS BY MOUTH EVERY DAY active Not Available Not Available No t Available alosetron 1 mg tablet TAKE 1 TABLET BY MOUTH TWICE DAILY active Not Available Not Available No t Available cephalexin 500 mg capsule TAKE 1 TABLET BY MOUTH EVERY 6 HOURS FOR 10 DAYS 05/25 completed Not Available Not Available Not Available aspirin 81 mg chewable tablet CHEW AND SWALLOW 1 TABLET BY MOUTH EVERY DAY active Not Available Not Available No t Available cephalexin 500 mg tablet Take 1 tablet every 6 hours by oral route for 10 days. 05/25 completed Not Available Not Available Not Available bisacodyl 5 mg tablet,mickey yed release 11/24 completed Not Available Not Available Not Available furosemide 20 mg tablet TAKE 1 TO 2 TABLETS BY MOUTH FOR SWELLING active Not Available Not Available No t Available metoprolol succinate ER 25 mg tablet,exte nded release 24 hr TAKE 1 TABLET BY MOUTH DAILY. REPLACES CAPSULE active Not Available Not Available No t Available polyethylen e glycol 3350 17 gram/dose oral powder 05/04 completed Not Available Not Available Not Available betamethaso ne dipropionat e 0.05 % topical ointment 11/24 completed Not Available Not Available Not Available amoxicillin 875 mg-potassiu m clavulanate 125 mg tablet TAKE 1 TABLET BY MOUTH EVERY 12 HOURS 05/18 completed Not Available Not Available Not Available Pneumovax-2 3 25 mcg/0.5 mL injection syringe ADM 0.5ML IM UTD 11/24 completed Not Available Not Available Not Available Humira 40 mg/0.8 mL subcutaneou s syringe kit every other week active Not Available Not Available No t Available alosetron 0.5 mg tablet TAKE 1 TABLET BY MOUTH TWICE DAILY 11/24 completed Not Available Not Available Not Available chlorhexidi ne gluconate 0.12 % mouthwash SWISH AND SPIT 10 ML BY MOUTH THREE TIMES DAILY 05/18 completed Not Available Not Available Not Available Brilinta 90 mg tablet TAKE 1 TABLET BY MOUTH TWICE DAILY 05/18 completed Not Available Not Available Not Available Viberzi 100 mg tablet TAKE 1 TABLET BY MOUTH TWICE DAILY 05/10 completed Not Available Not Available Not Available COVID-19 test specimen collection TEST DIRECTED 05/04 completed Not Available Not Available Not Available Fluad Quad (6 5yr up)(PF) 60 mcg (15 mcg x 4)/0.5mL IM syringe ADM 0.5ML IM UTD 11/24 completed Not Available Not Available Not Available Vtama 1 % topical cream Apply to psoriasis areas on body daily. active Not Available Not Available No t Available Vitals Date Recorded Body height Body mass index (BMI) Body weight Heart rate Oxygen saturation Oxygen saturation in Arterial blood by Pulse oximetry Systolic blood pressure Diastolic blood pressure Provider Name and Address Organization Details Last Updated DateTime 162.56 cm 28.8 kg/m2 33882.5 2 g 63 /min 98 % 98 % 138 mm[Hg] 72 mm[Hg] Gentry Geronimo [facility] 14:52:08 Social History Question Answer Notes LastModified by Organizat ion Details LastModified Time Tobacco Smoking Status Former Smoker Half a pack a day [place] justin [facility] 05/25/2024 13:31:17 What Was The Date Of Your Most Recent Tobacco Screening? 07/25/2024 [email or web address] Information not available 07/25/2024 Do You Or Have You Ever Used Any Other Forms Of Tobacco Or Nicotine? No [email or web address] Information not available 08/31/2023 Sex: Unknown Functional Status None recorded. Mental Status None recorded. Family History Relationship Description Onset Age of this Age Resolved Age Notes LastModified by Organization Details LastModified Time Mother Myocardial infarction 73 [email or web address] Not available 04/04 16:32:12 Mother Malignant neoplasm of urinary bladder [email or web address] Not available 2023 13:26:14 Mother Asthma [email or web address] Not available 04/23/2019 16:32:19 Father Chronic obstructive pulmonary disease [email or web address] Not available 04/23 16:32:25 Father Essential hypertension [email or web address] Not available 13:26:14 Sister Malignant tumor of breast [email or web address] Not available 2023 13:26:14 Medical History Condition Response Coronary Artery Disease N Gout N Kidney Stones N Blood Diseases N Hyperthyroidism N Blood Transfusion N Breast Cancer N Hypothyroidism N Lung Disease N Depression N COPD N Defects or Inherited Disease N Difficulty Swallowing N Anesthesia Complications N Anxiety Disorder Y Meniere's disease N Muscle, Joint, or Bone Problems N Obesity N Arthritis N Polyps Y Mental Disorder N Cancer Y Stroke N Varicosities N Bladder or Kidney Problems N High Cholesterol N Liver Disease N Fibromyalgia N Headaches N Kidney Disease N Allergies/Hayfever N Heart Problems N Hospitalizations Y Thyroid Problems N GI Problems Y Eating Disorder N Skin Problems Y Anemia N MRSA exposure Y Constipation N Mental Illness N Diabetes N Ovarian Cancer N Seizures/Epilepsy N Tuberculosis N Congestive Heart Failure (CHF) N Eczema Y Abuse/Domestic Violence N Diverticulitis N Asthma N Reflux/GERD N Hepatitis N Heart Disease N Pulmonary Embolism N Chronic Ear Infections N Hypertension Y Chicken Pox Y Autism Spectrum Disorder (ASD) N Osteoporosis N Thrombophilias N Gynecological History Statement/Question Response If Post Menopausal, Age at Menopause 44 Age at Menarche 13 Obstetrics History GPAL:G 0 P 0 0 0 0 Immunizations Vaccine Type Date Status Note Provider Nam e and Address Organization Details Recorded Time COVID-19, mRNA, LNP-S, PF, 100 mcg/0.5mL dose or 50 mcg/0.25mL dose 08/31/19 21 [facility] 13:25:43 COVID-19, mRNA, LNP-S, PF, 100 mcg/0.5mL dose or 50 mcg/0.25mL dose 09/29/19 21 completed Perri [facility] 05/18/2023 13:25:43 Tdap 12/03/19 14 completed Beena [facility] 04/16/2020 13:29:32 SARS-COV-2 (COVID-19) vaccine, UNSPECIFIED 05/18/20 23 completed JESE GRAVES [address] [place] [address], [phone], [facility] [place] 05/18/2023 13:42:34 Respiratory syncytial virus (RSV) MAB, unspecified 05/18/20 23 completed JESE GRAVES [address] [place] [address], [phone], [facility] [place] 05/18/2023 13:42:46 influenza, unspecified formulation 05/18/20 completed JESE GRAVES [address] [place] [address], [phone], [facility] [place] 05/18/2023 13:43:07 pneumococcal polysaccharide PPV23 03/23/20 16 [facility] 13:25:43 Pneumococcal conjugate PCV 13 04/26/20 19 completed Perri Gencarelle margoth, [facility] 05/18/2023 13:25:43 Influenza, split virus, quadrivalent, preservative 04/26/20 19 completed Perri Gencarelle null, [facility] 05/18/2023 13:25:43 pneumococcal polysaccharide PPV23 04/26/20 20 completed Perri Gencarelle null, [facility] 05/18/2023 13:25:43 Influenza, split virus, quadrivalent, preservative 04/26/20 20 completed Perri Gencarelle null, [facility] 05/18/2023 13:25:43 Past Encounters Encounter ID Performer Location Encounter Start Date Encounter Closed Date Diagnosis/Indication Diagnosis SNOMED-CT Code Diagnosis ICD10 Code Diagnosis Note [id number] JESE GRAVES [facility] [address] [address] 07/25/2024 14:43:22 07/25/2024 15:33:49 Mass of neck 808796313 R22.1 recommende d US, feels like a reactive US Hyperlipidemia 46044858 E78.5 needs new lab order Health Concerns Section Related Observation LastModified by Organization Detai ls LastModified Time None Recorded Concern Status LastModified by Organization Details LastModified Time None Recorded Payers Encounter Date Sequence Insurance Name Policy Number Policy Hall Covered Member ID Hall Member ID Guarantor Name 07/25/2024 1 [place] [employer] Cydney Damon [id number] Cydney Damon 07/25/2024 2 [place] [id number] Cydney Damon [id number] Cydney Damon Notes Date Note Type Note Provider Name a nd Address Organization Details Recorded Time 07/25/2024 text/html c/o lump left si de of the neck feels like a LN on the left side of the neck, under the jawtenderness around the area and with palpation recommended US, feels like a lymph but want to r/o cause for reactivity vs lipomapt agrees, US order sent JESE GRAVES [address] [place], [phone], [place] [facility] 07/25/2024 15:23:52 OBGyn Episode No OBEpisode recorded.
--- OUTSIDE RECORDS SUMMARY | 2024-08-16 16:17 | XMS_ITS | Data Portability ---
Author Organization [facility] Home Service Address [address] [place] [address] Assessment Encounter Date Assessment Date Assessment LastModified by Organization Details LastModified Time 09/02/2023 09/02/2023 The patient denies recent falls or recurrent falls. Denies instability, weakness, abnormal gait, or difficulties with movement. The patient wears correct, supportive shoes and is not otherwise severely visually impaired. The patient is full weight bearing and if using the assistance of a cane or walker feels supported and stable with the use of such devices. All medical conditions have been taken into account that may pose a risk for the patient for falls. Home mavis, carpets and/or rugs do not pose a challenge for the patient. The patient has been educated about the use of vitamin D supplementation for bone health and prevention of hypotensive episodes that may increase risk for fall. All question and concerns were answered to the patient's satisfaction. The patient denies little pleasure in activities they find enjoyable, feeling depressed, difficulties sleeping, feeling tired or having little energy, change in appetite, feeling guilty, overwhelmed or unmotivated. The patient denies suicidal ideation, thoughts of hurting themselves or others. Their mood is appropriate, they show good judgement and clear understanding of the conversation. They are orientated to time, place and person. They are not expressing any concerning thoughts or actions that would need further investigation and treatment for mental health. [email or web address] Not available 09/02/2023 14:30:17 Plan of Treatment Reminders Order Date Submit Date Provider Last Modified By Organization Details Last Modified Time Details Appointments ANNUAL EXAM 2024 01:30P M JESE GRAVES Not available Not available Not available Lab lipid panel, serum 2024 025 [facility], [address] [place] [address], [id number], 07/25/2024 15:21:59 CMP, serum or plasma 2024 025 [facility], [address] [place] [address], [id number], 07/25/2024 15:21:59 CBC w/ auto diff 2024 025 [facility], [address] [place] [address], [id number], 07/25/2024 15:21:59 hemoglobi n A1c, QN, blood 2024 025 [facility], [address] [place] [address], [id number], 07/25/2024 15:21:59 CMP, serum or plasma 2023 024 [facility], [address] [place] [address], [id number], 05/25/2024 13:59:35 CBC w/ auto diff 2023 024 [facility], [address] [place] [address], 315[address], 05/25/2024 13:59:35 lipid panel, blood 2023 024 [facility], [address] [place] [address], [address], 05/25/2024 13:59:35 vitamin D, 25-hydrox y, total, serum 2023 024 [facility], [address] [place] [address], [id number], 05/25/2024 13:59:35 Referral None recorded. Procedures None recorded. Surgeries None recorded. Imaging US, neck, soft tissue 2024 025 [facility], [address] [facility], [place], [address], 07/27/2024 09:08:25 Medication Orders None recorded. Patient TargetsNo targets recorded. Patient InstructionsNo instructions recorded. Reason for Referral None Reported. Problems Name Problem SNOMED Code Status Onset Date Resolution Date Notes Provider Name and Address Organization Details Recorded Time Yari l hyperten tyler 61062235 Active 2017 Not Available [facility] 0 02:44:11 Psoriasi s 6747656 Active 2017 Not Available [facility] 0 02:44:11 Anxiety 44626832 Active 2017 Not Available [facility] 0 02:44:10 Microsco pic hematuri a 416185869 Active 2018 dr brady Not Available [facility] 0 02:44:11 Tobacco dependen ce syndrome 27123220 Active 2018 Not Available [facility] 0 02:44:11 Malignan t tumor of vulva 936125270 Active 2018 Not Available [facility] 0 02:44:11 Stented coronary artery 512704256 Active 2021 resolute sebastien zotarlium s-eluting stent JESE GRAVES [address] [place], [address], [facility] 2 14:02:52 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 351888130 Active 2021 JESE GRAVES [address] [place], [address], [facility] 2 14:05:16 Hyperlip idemia 92014540 Active 2021 JESE GRAVES [address] [place], [address], [facility] 2 15:36:17 Abnormal weight loss 708768838 Active 2021 JESE GRAVES [address] [place] [address], [address], [facility] 2 13:58:53 Palpitat ions 31309198 Active 2021 JESE GRAVES [address] [place] [address], [address], [facility] 2 13:59:29 Contact dermatit is 55537171 Active 2023 JESE GRAVES [address] [place] [address], [address], [facility] 4 13:55:13 Allergic reaction to drug 616563964 Active 2023 JESE GRAVES [address] [place] [address], [address], [facility] 4 13:55:23 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 Procedures Surgical History Date Name Laterality Status Provider Name and Address Organization Details Recorded Time 03/06/20 15 colonoscopy completed Sarah NICOLETTE Thayer [address] [place] [address], [address], [facility] 04/25/2019 13:59:26 04/03/20 13 colonoscopy completed October NICOLETTE Thayer [address] [place] [address], [address], [facility] 04/23/2019 16:33:52 07/04/18 94 Vulvectomy simple complete completed Lucie Gardner NP, S [address] [facility], [place], [address], [facility] 04/07/2018 13:40:20 Imaging Results None recorded. Procedure Notes None recorded. Medical Equipment None Reported. Allergies Allergen ID Allergen Name Allergen Category Reaction Reaction Severity Criticality Documentation Date Start Date Code Code System Note Provider Name and Address Organization Details Recorded Time 2376 Percodan medicatio n Not available Not available Not available 04/07/2018 51326 RxNorm Rina Guerrero [facility] 8 08:21:41 7849 Vtama medicatio n rash severe high 09/02/20232023 56430 02 RxNorm Tosha Josr [facility] 4 14:13:54 Medications Name Sig Start Date [...] and Address Organization Details Last Updated DateTime 4 162.56 cm 21.5 kg/m2 78446.0 5 g 60 /min 97 % 97 % 140 mm[Hg] 62 mm[Hg] Tosha Ovalles [facility] 4 14:03:23 Date Recorded Body height Body mass index (BMI) Body weight Heart rate Oxygen saturation Oxygen saturation in Arterial blood by Pulse oximetry Systolic blood pressure Diastolic blood pressure Provider Name and Address Organization Details Last Updated DateTime 4 162.56 cm 24.8 kg/m2 25453.8 2 g 64 /min 97 % 97 % 136 mm[Hg] 80 mm[Hg] Georgia Nguyen [facility] 4 13:32:41 Date Recorded Body height Body mass index (BMI) Body weight Heart rate Oxygen saturation Oxygen saturation in Arterial blood by Pulse oximetry Systolic blood pressure Diastolic blood pressure Provider Name and Address Organization Details Last Updated DateTime 5 162.56 cm 28.8 kg/m2 56392.5 2 g 63 /min 98 % 98 % 138 mm[Hg] 72 mm[Hg] Gentry Geronimo [facility] 5 14:52:08 Social History Question Answer Notes LastModified by Organizat ion Details LastModified Time Tobacco Smoking Status Former Smoker Half a pack a day Georgia Nguyen [facility] 05/25/2024 13:31:17 What Was The Date Of Your Most Recent Tobacco Screening? 07/25/2024 [email or web address] Information not available 07/25/2024 Do You Or Have You Ever Used Any Other Forms Of Tobacco Or Nicotine? No Information not available 08/31/2023 Sex: Unknown Functional Status None recorded. Mental Status None recorded. Family History Relationship Description Onset Age of this Age Resolved Age Notes LastModified by Organization Details LastModified Time Mother Myocardial infarction 73 [email or web address] Not available 04/04 16:32:12 Mother Malignant neoplasm of urinary bladder [email or web address] Not available 2023 13:26:14 Mother Asthma [email or web address] Not available 04/23/2019 16:32:19 Father Chronic obstructive pulmonary disease [email or web address] Not available 04/23 16:32:25 Father Essential hypertension Not available 13:26:14 Sister Malignant tumor of breast [email or web address] Not available 2023 13:26:14 Medical History Condition [...] or 50 mcg/0.25mL dose 08/31/19 21 completed [facility] 05/18/2023 13:25:43 COVID-19, mRNA, LNP-S, PF, 100 mcg/0.5mL dose or 50 mcg/0.25mL dose 09/29/19 21 completed [facility] 05/18/2023 13:25:43 Tdap 12/03/19 14 [facility] 13:29:32 SARS-COV-2 (COVID-19) vaccine, UNSPECIFIED 05/18/20 23 completed JESE GRAVES [address] [place], [address], [facility] 05/18/2023 13:42:34 Respiratory syncytial virus (RSV) MAB, unspecified 05/18/20 23 completed JESE GRAVES [address] [place], [address], [facility] 05/18/2023 13:42:46 influenza, unspecified formulation 05/18/20 23 completed JESE GRAVES [address] [place], [address], [facility] 05/18/2023 13:43:07 pneumococcal polysaccharide PPV23 03/23/20 16 completed [facility]h [facility] 05/18/2023 13:25:43 Pneumococcal conjugate PCV 13 04/26/20 19 completed Perri Gencarellsim [facility] 05/18/2023 13:25:43 Influenza, split virus, quadrivalent, preservative 04/26/20 19 completed Perri Gencarelle [facility] 05/18/2023 13:25:43 pneumococcal polysaccharide PPV23 04/26/20 20 completed [facility] 05/18/2023 13:25:43 Influenza, split virus, quadrivalent, preservative 04/26/20 20 completed Perri Gencarelle [facility] 05/18/2023 13:25:43 Past Encounters Encounter ID Performer Location Encounter Start Date Encounter Closed Date Diagnosis/Indication Diagnosis SNOMED-CT Code Diagnosis ICD10 Code Diagnosis Note [id number] Lucie Gardner NP, S [facility] [address] [facility],[place] [address] 04/07/2018 13:19:11 04/07/2018 14:08:58 Adult health examination 675829053 Z00.01 Anxiety 33700509 F41.9 Essential hypertension 42487732 I10 Psoriasis 7269691 L40.9 [id number] October NICOLETTE Thayer [facility] [address] [facility] [address],[place] [address] 04/23/2019 15:38:04 04/23/2019 16:39:33 Psoriasis 4011138 L40.9 Essential hypertension 76151092 I10 Anxiety 59049441 F41.[address] [facility] examination 718235959 Z00.00 will schedule mwv - will order labs Tobacco de pendence syndrome 92648517 F17.200 no plans to quit has tried to quit in the past but nothing recently has been smoking since approx age 20 [id number] JESE GRAVES [facility] [address] [facility] [address],[place] [employer] [facility] [place] [address] 04/16/2020 13:22:48 04/16/2020 14:11:42 Adult health examination 879885697 Z00.00 doing well will monitor BP Screening for cardiovascular system disease 860986517 Z13.6 [place] [id number] JESE GRAVES [facility] [address] [facility] [address], it[address] [employer] [place] [address] 05/04/2021 14:03:39 05/05/2021 09:14:10 Active or passive immunization 157189522 Z23 advisedget ting her booster and her flu shot tomorrow Adult [facility] examination 347707675 Z00.00 [place] [id number] JESE GRAVES [facility] [address] [facility] [address], ite [address] [employer] [place] [address] 11/24/2021 13:30:43 11/24/2021 16:43:56 Stented coronary artery 023098864 Z95.5 stable, has cardiology f/u Acute non- ST segment elevation myocardial infarction 286077018 I21.4 stable, has cardiology f/u [id number] JESE GRAVES [facility] [address] [facility] [address],[place] [address] [place] [address] 05/10/2022 13:25:08 05/11/2022 10:48:56 Active or passive immunization 116488257 Z23 advisedget ting her booster and her flu shot tomorrow Adult [facility] examination 238753966 Z00.00 doing well will monitor BP Abnormal weight loss 267 131281 R63.4 related to the sucralfate which is a side effect Palpitations 09724184 R0 0.2 probably related to sucralfate as a side effect [id number] JESE GRAVES [facility] [address] [place] [address],[place] [address] 05/18/2023 13:25:35 05/18/2023 15:17:44 Acute non-ST segment elevation myocardial infarction 030506364 I21.4 recent f/u with cardio within the month Adult [facility] examination 831370440 Z00.00 doing well will monitor BP [id number] JESE GRAVES [facility] [address] [place] [address], [place] [address] 08/30/2023 08:53:43 08/31/2023 14:27:59 Allergic reaction to drug 656980307 T50.905A possibly will need steroid taper and abx for prevention of cellulitis given break down of the skin barrier Contact dermatitis 11635 004 L23.3 [id number] JESE GRAVES [facility] [address] [place] [address],[place] [address] 08/31/2023 13:56:56 08/31/2023 16:37:41 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 Komal HIGGINBOTHAM, integrativ e derm sending yesterday' s and today's photos 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 JESE GRAVES [facility] [address] [facility],[place] [address] 09/02/2023 14:00:46 09/02/2023 15:59:13 Rooney-Herve syndrome 36314783 L51.1 improvingw ill fu with derm if needed Myocardial infarction 22 267464 I21.4 stable [id number] JESE GRAVES [facility] [address] [facility] [address],[place] [address] 09/07/2023 14:13:40 09/07/2023 15:14:19 Rooney-Herve syndrome 29038338 L51.1 completely resolved [id number] [facility] [address] [facility] [address],[place] [address] 05/25/2024 13:26:04 05/25/2024 14:10:13 Active or passive immunization 526082069 Z23 advisedget ting her booster and her flu shot tomorrow Adult heal th examination 914571309 Z00.00 doing well will monitor BP Depression screening 171 182175 Z13.31 SCREENING NEGATIVE [id number] [facility] [address] [facility] [address],[place] [address] 07/25/2024 14:43:22 07/25/2024 15:33:49 Mass of neck 706656501 R22.1 recommende d US, feels like a reactive US Hyperlipidemia 15902454 E78.5 needs new lab order Health Concerns Section Related Observation LastModified by Organization Detai ls LastModified Time None Recorded Concern Status LastModified by Organization Details LastModified Time None Recorded Advance Directives Directive None Recorded Payers Encounter Date Sequence Insurance Name Policy Number Policy Hall Covered Member ID Hall Member ID Guarantor Name 08/31/2023 1 [place] [employer] Cydney Damon [id number] 1 [facility] 08/31/2023 2 [place] [id number] [facility]ydney Dam[facility] [id number]/02/2023 1 [place] Cydney Damon [id number] 1 Cydney [facility] 09/02/2023 2 [place] [id number] Cydney Damon [id number] Cydney [facility] 09/07/2023 1 [place] Cydney Damon [id number] 1 [facility] 09/07/2023 2 [place] [id number] Cydney Damon [id number] Cydney Damon 05/25/2024 1 [place] Cydney Damon [id number] 1 Cydney Damon 05/25/2024 2 [place] [id number] Cydney Damon [id number] Cydney Damon 07/25/2024 1 [place] Cydney Damon [id number] 1 Cydney Damon 07/25/2024 2 [place] [id number] Cydney Damon [id number] Cydney Damon Notes Date Note Type Note Provider Name a nd Address Organization Details Recorded Time 4 text/html f/u 1 day pain improved, swelling has improved, azul in the left armno signs of infection currentlyno fever, no chills, no general malaise feels good, besides the rashwill send them info to her Derm, pics from today and tomorrow keep arms clean and drycovered as well do avoid outside exposure JESE GRAVES [address] [place], [address], [facility] 08/31/2023 15:13:51 4 text/html f.u dermatology the patient reports that she saw dermatology yesterdaythe patient reports that they weren't convinced it was an allergic reaction, nor was it was the patient arms is doing much better, her itching has much improved, the burning has resolved, the swelling is completely back normal skin is still irritated and dry but that should improve overtime as the skin heals the patient will continue the medication until course is done and then will see how she is will also see her again next week to see if she is still improve JESE GRAVES [address] [place], [address], [facility] 09/02/2023 14:30:29 4 text/html f/u skin her rash has completely resolved with the medicationstill currently on the abx, steriod and lasixwill finish out the abx and the steriodwill stop the lasix when she finishes out the abx and steriod will call if it gets worse or something changes has fu with derm again 10/03/23will discuss about the psoriasis JESE GRAVES [address] [place], [address], [facility] 09/07/2023 14:42:35 4 text/html Annual WellnessReported bypatient.Diet and Nutrition:healthy diet; discussed vitamin and supplement use; discussed portion control; discussed maintaining calcium balance; discussed diet improvement Fracture Risk:no history of fractures; no recent explained fracture; no sudden unexplained fractures; no previous musculoskeletal injuries Physical Activity:exercises on a regular basis; recent increase in physical activity; good physical condition Additional Lifestyle Factors:no tobacco use; drinks alcohol (mild-moderate) Depression Risk:never feels sad, empty, or tearful; no loss of interest in activities; no significant changes in weight; no sleep disturbances or insomnia; no agitation; no loss of energy; no feelings of worthlessness or guilt; no thoughts of suicide; no history of depression; no history of mood disorders Hearing:no loss of hearing Vision:no vision problems the patient is doing well after her no more rash, no flare upthe patient is doing well over all the patient hasn't smoked in the past 3 mosthe patient uses nicorette gum one uses one piece of gum the patient is up about 20 poundsrelated to d/c the smoking JESE GRAVES [address] [place], [address], [facility] 05/25/2024 14:08:44 5 text/html c/o lump left side of the neck feels like a LN on the left side of the neck, under the jawtenderness around the area and with palpation recommended US, feels like a lymph but want to r/o cause for reactivity vs lipomapt agrees, US order sent JESE GRAVES [address] [place], [address], [facility] 07/25/2024 15:23:52 OBGyn Episode No OBEpisode recorded.
== END 2024-08-16 16:16 | disposition home or self-care (01) ==
LOC: HO.US 16:15
PROVIDERS: PCP Internal Medicine; Visit Provider Physician Assistant
DX: R60.0 Localized edema (principal)
CPT/HCPCS: 76536

== ENCOUNTER → 2024-08-16 16:18 | Outpatient (BNV) | payer MEDICARE, SELFPAY | PROVIDERS: PCP Internal Medicine; Visit Provider Specialist | DX: R22.1 Localized swelling, mass and lump, neck (principal) | CPT/HCPCS: 76536 ==

== ENCOUNTER 2024-09-28 14:14 | Outpatient (AMB) | payer MEDICARE, SELFPAY ==
[2024-09-28 14:16] VITALS: BP 145/70; PULSE 57; BMI 28.2
--- NOTE | 2024-09-28 14:16 | A.OFFVIS_ITS ---
Vital Signs 09/28/24 14:16 Height 5 ft 3 in Weight 159 lb BMI 28.2 BP 145/70 H Blood Pressure Location Lt brachial Position Sitting Pulse 57 Intake Visit Reasons: IBS-D Intake Note: Patient in office today in follow up of IBS-D. CC: Patient reports doing a little bit better form diarrhea. De Director And Professor Required: No Allergies oxycodone [Percodan] Allergy (Unknown, Verified 09/28/24 14:30) Headache acetaminophen [From Percocet] Adverse Reaction (Mild, Verified 09/28/24 14:30) unknown HPI HPI IBS-D: Details: Assessment & Plan (1) Irritable bowel syndrome with diarrhea: Code(s): K58.0 - Irritable bowel syndrome with diarrhea Category: Medical Plan Her just , he peacefully. It was lung cancer. SO this has upset her GI regimen somewhat, but she says she doing ok overall and she does not think she needs any therapy adjustments. She also ran out of her Lotronex and there was some delay as the pharmacy was out of the 1mg dose. She has tried to continue on her sucralfate but alone and has not been enough to control her symptoms. She feels that when she restarts her medication she will be fine and she will call me if she has not. ROV 6 mos. Medications: Changed From sucralfate 3 grams (3 x 1 gram) PO DAILY 270 tabs 1RF K58.0 - Irritable bowel syndrome with diarrhea To sucralfate 3 grams (3 x 1 gram) PO DAILY 270 tabs 1RF K58.0 - Irritable bowel syndrome with diarrhea Refilled alosetron 1 mg PO BID 60 tabs 6RF K58.0 - Irritable bowel syndrome with diarrhea TODAY'S VISIT She continues to do very well utilizing Carafate and Lotronex. She remains satisfied with her GI regimen. Return office visit in 1 year [facility] Medical History Cancer of vulva Psoriasis Tubular adenoma of colon IBS (irritable colon syndrome) Surgical History Hx of colonoscopy Family History Mother Bladder cancer Heart disease Sister Breast cancer Hypothyroidism Father COPD (chronic obstructive pulmonary disease) HTN (hypertension) Paternal Grandfather Cancer Maternal Grandmother Diabetes mellitus Maternal Grandfather Heart attack Social History Household Members: Spouse Are you a primary care coordinator to a significant other at home: No Do you presently have visiting nurse or other home services: No Alcohol intake: current Alcohol intake frequency: does not drink Cigarette Packs Per Day: 0.5 Cigarettes Per Day: 10.0 Years Smoked: 48 Review of Systems Const Denies fatigue, Denies fever(s), Denies night sweats, Denies poor appetite and Denies weight loss ENT Reports Normal hearing present, Denies dental pain, Denies dysphagia, Denies hea ring loss, Denies mouth pain, Denies odynophagia, Denies throat swelling, Denies tongue swelling and Reports other (Dentition adequate) Card Reports no additional complaints Resp Reports no additional complaints GI Details: Denies abdominal pain, Denies melena, Denies bloating, Denies hematochezia, Denies constipation, Denies GI cramping, Denies dysphagia, Denies excessive flatus, Denies early satiety, Denies heartburn, Denies diarrhea, Denies nausea, Denies odynophagia, Denies vomiting and Denies hematemesis Skin/Breast Denies pruritus, Denies lesions, Denies rash and Denies jaundice Neuro Reports Normal hearing present and Denies Abnormal speech present Endo Denies fatigue Aller/Immun Denies throat swelling and Denies tongue swelling Physical Exam Vital Signs: Last Vital Signs Pulse 57 09/28/24 14:16 BP 145/70 H 09/28/24 14:16 BMI result Body Mass Index 28.2 Const General: cooperative, no acute distress, well developed and well groomed Nutritional Appearance: average body habitus and well nourished Orientation/consciousness: oriented to person, oriented to place and oriented to time Limitations: No language barrier HEENT Head: Yes normocephalic and Yes atraumatic Eyes General: appearance normal, both eyes and all related structures Pupils: Equal, round and reactive pupils present Neck Neck: Yes normal visual inspection and Yes no lymphadenopathy Thyroid: Thyroid normal Resp Effort & Inspection: normal respiratory effort and able to speak in complete sentences Auscultation: clear to auscultation bilaterally Cardio Rate: regular rate Rhythm: regular rhythm Heart sounds: Normal, physiologic split S2 sound present Peripheral pulses: radial pulses present and posterior tibial pulses present GI Inspection: No distended and No Abdominal panniculus present Palpation (GI): Soft to palpation, nontender, no guarding, not rigid and No hepatosplenomegaly present Percussion: Yes normal to percussion Auscultation: normal bowel sounds Rectal Exam - Female: deferred Skin General skin exam: no rashes or lesions noted, turgor normal, skin not dry, no jaundice, No spider nevi and no striae Rashes: no rashes Nails: normal Neuro General: oriented to person, oriented to place and oriented to time Cranial nerves: Yes Equal, round and reactive pupils present and Yes Normal hearing present Speech: No Abnormal speech present Extrem General: Yes normal to inspection, No clubbing, No cyanosis and No edema Psych Appearance: grossly normal and well kempt Mental Status: mental status grossly normal Speech and movement: Normal speech and movement present Affect: normal affect Attitude: cooperative Thought process: Normal thought process present and not confabulating Thought content: Normal thought content present Insight: Good insight present (Psych) Judgement: Good judgement present (Psych) Assessment & Plan Assessment & Plan (1) Irritable bowel syndrome with diarrhea: Code(s): K58.0 - Irritable bowel syndrome with diarrhea Category: Medical Plan She continues to do very well utilizing Carafate and Lotronex. She remains satisfied with her GI regimen. Return office visit in 1 year Medications: Refilled sucralfate 3 grams (3 x 1 gram) PO DAILY 270 tabs 1RF K58.0 - Irritable bowel syndrome with diarrhea alosetron 1 mg PO BID 60 tabs 6RF K58.0 - Irritable bowel syndrome with diarrhea Coding Level of Care Code Est Pt Level 3 (93004) Diagnoses Irritable bowel syndrome with diarrhea K58.0
== END 2024-09-28 14:48 | disposition home or self-care (01) ==
LOC: HO.HGI 14:15
PROVIDERS: PCP Internal Medicine; Visit Provider Nurse Practitioner
DX: K58.0 Irritable bowel syndrome with diarrhea (principal)
CPT/HCPCS: 99213

== ENCOUNTER → 2024-09-28 14:14 | Outpatient (BNVA) | payer MEDICARE, SELFPAY | PROVIDERS: PCP Internal Medicine; Visit Provider Nurse Practitioner | DX: K58.0 Irritable bowel syndrome with diarrhea (principal) | CPT/HCPCS: 99212 ==

== ENCOUNTER 2025-03-29 13:11 | Outpatient (AMB) | payer MEDICARE, SELFPAY ==
--- NOTE | 2025-03-29 13:12 | A.OFFVIS_ITS ---
Vital Signs 03/29/25 13:13 Height 5 ft 3 in Weight 159 lb BMI 28.2 BP 122/66 Blood Pressure Location Rt brachial Position Sitting Pulse 72 Pulse Source Pulse Oximeter Pulse Oximetry (%) 94 Oxygen Delivery Method Room Air Intake Visit Reasons: IBD Intake Note: Est pt for mgmt of IBS. CC: Pt denies any GI changes or new sx at this time. 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 She remains satisfied with her GI regimen. Return office visit in 1 year Medications: Refilled sucralfate 3 grams (3 x 1 gram) PO DAILY 270 tabs 1RF K58.0 - Irritable bowel syndrome with diarrhea alosetron 1 mg PO BID 60 tabs 6RF K58.0 - Irritable bowel syndrome with diarrhea TODAY'S VISIT [facility] Medical History Cancer of vulva Psoriasis Tubular adenoma of colon IBS (irritable colon syndrome) Surgical History Hx of colonoscopy Family History Mother Bladder cancer Heart disease Sister Breast cancer Hypothyroidism Father COPD (chronic obstructive pulmonary disease) HTN (hypertension) Paternal Grandfather Cancer Maternal Grandmother Diabetes mellitus Maternal Grandfather Heart attack Social History Household Members: Spouse Are you a primary home health care provider to a significant other at home: No Do you presently have visiting nurse or other home services: No Alcohol intake: current Alcohol intake frequency: does not drink Cigarette Packs Per Day: 0.5 Cigarettes Per Day: 10.0 Years Smoked: 48 Review of Systems Const Denies fatigue, Denies fever(s), Denies night sweats, Denies poor appetite and Denies weight loss ENT Reports Normal hearing present, Denies dental pain, Denies dysphagia, Denies hearing loss, Denies mouth pain, Denies odynophagia, Denies throat swelling, Denies tongue swelling and Reports other (Dentition adequate) Card Reports no additional complaints Resp Reports no additional complaints GI Details: Denies abdominal pain, Denies melena, Denies bloating, Denies hematochezia, Denies constipation, Denies GI cramping, Denies dysphagia, Denies excessive flatus, Denies early satiety, Denies heartburn, Reports diarrhea, Denies nausea, Denies odynophagia, Denies vomiting and Denies hematemesis Skin/Breast Denies pruritus, Denies lesions, Denies rash and Denies jaundice Neuro Reports Normal hearing present and Denies Abnormal speech present Endo Denies fatigue Aller/Immun Denies throat swelling and Denies tongue swelling Physical Exam Vital Signs: Last Vital Signs Pulse 72 03/29/25 13:13 BP 122/66 03/29/25 13:13 Pulse Ox 94 03/29/25 13:13 Oxygen Delivery Method Room Air 03/29/25 13:13 BMI result Body Mass Index 28.2 Const General: cooperative, no acute distress, well developed and well groomed Nutritional Appearance: average body habitus and well nourished Orientation/consciousness: oriented to person, oriented to place and oriented to time Limitations: No language barrier HEENT Head: Yes normocephalic and Yes atraumatic Eyes General: appearance normal, both eyes and all related structures Pupils: Equal, round and reactive pupils present Neck Neck: Yes normal visual inspection and Yes no lymphadenopathy Thyroid: Thyroid normal Resp Effort & Inspection: normal respiratory effort and able to speak in complete sentences Auscultation: clear to auscultation bilaterally Cardio Rate: regular rate Rhythm: regular rhythm Heart sounds: Normal, physiologic split S2 sound present Peripheral pulses: radial pulses present and posterior tibial pulses present GI Inspection: No distended, No Abdominal panniculus present and Yes obesity Palpation (GI): Soft to palpation, nontender, no guarding, not rigid and No hepatosplenomegaly present Percussion: Yes normal to percussion Auscultation: normal bowel sounds Rectal Exam - Female: deferred Skin General skin exam: no rashes or lesions noted, turgor normal, skin not dry, no jaundice, No spider nevi and no striae Rashes: no rashes Nails: normal Neuro General: oriented to person, oriented to place and oriented to time Cranial nerves: Yes Equal, round and reactive pupils present and Yes Normal hearing present Speech: No Abnormal speech present Extrem General: Yes normal to inspection, No clubbing, No cyanosis and No edema Psych Appearance: grossly normal and well kempt Mental Status: mental status grossly normal Speech and movement: Normal speech and movement present Affect: normal affect Attitude: cooperative Thought process: Normal thought process present and not confabulating Thought content: Normal thought content present Insight: Good insight present (Psych) Judgement: Good judgement present (Psych) Assessment & Plan Assessment & Plan (1) Irritable bowel syndrome with diarrhea: Code(s): K58.0 - Irritable bowel syndrome with diarrhea Category: Medical (2) Tubular adenoma of colon: Comment: 2020 colonoscopy 1 polyp repeat in 5 years Code(s): D12.6 - Benign neoplasm of colon, unspecified Category: Medical (3) Pre-op examination: Code(s): Z01.818 - Encounter for other preprocedural examination Category: Medical Plan She continues to do very well utilizing Carafate and Lotronex. She remains satisfied with her GI regimen. She is due for repeat colonoscopy. She is agreeable to order yet since we are scheduling out into . She had a prior colonoscopy 5 years ago with a tubular adenoma removed. There are no prior problems with anesthesia or sedation. She denies any cardiac or respiratory problems. There are no infectious disease problems. Return office visit in 6 months and/or after the colonoscopy depending on the timing. Orders: Orders Comprehensive Met. Panel Today Z01.818 - Encounter for other preprocedural examination Complete Blood Count Auto Diff Today Z01.818 - Encounter for other preprocedural examination Referrals GI Procedure Notification D12.6 - Benign neoplasm of colon, unspecified Medications: New peg 3350-electrolytes [id number] -5.86 gram (Golytely) until fecal effluent is clear; do not exceed a total volume of 2,000 mL 240 mL PO Q10M 4,000 mL 0RF 1 day Z12.11 - Encounter for screening for malignant neoplasm of colon Coding Level of Care Code Est Pt Level 4 (38211) Diagnoses Irritable bowel syndrome with diarrhea K58.0 Tubular adenoma of colon D12.6 Pre-op examination Z01.818
[2025-03-29 13:13] VITALS: BP 122/66; PULSE 72; O2SAT 94; BMI 28.2
== END 2025-03-29 13:58 | disposition home or self-care (01) ==
LOC: HO.HGI 13:11
PROVIDERS: PCP Internal Medicine; Visit Provider Nurse Practitioner
DX: K58.0 Irritable bowel syndrome with diarrhea (principal); Z01.818 Encounter for other preprocedural examination; Z12.11 Encounter for screening for malignant neoplasm of colon; Z86.0101 Personal history of adenomatous and serrated colon polyps
CPT/HCPCS: 99214

== ENCOUNTER → 2025-03-29 13:11 | Outpatient (BNVA) | payer MEDICARE, SELFPAY | PROVIDERS: PCP Internal Medicine; Visit Provider Nurse Practitioner | DX: Z01.818 Encounter for other preprocedural examination (principal); K58.0 Irritable bowel syndrome with diarrhea; D12.6 Benign neoplasm of colon, unspecified | CPT/HCPCS: 99212 ==